=== PATIENT | female | born 1960 | race Caucasian/White ===

== ENCOUNTER 2019-02-22 17:27 | Emergency (ER) | payer OTHER ==
--- NOTE | 2019-02-22 18:55 | EDPHY ---
ED Progress Note Narrative: Patient left before being seen.
== END 2019-02-22 17:50 | disposition left against medical advice (07) ==
LOC: CED 17:27
DX: Z53.21 Procedure and treatment not carried out due to patient leaving prior to being seen by health care provider (principal)